=== PATIENT | male | born 1985 | race Caucasian/White ===

== ENCOUNTER 2023-03-22 18:59 | Emergency (ER) | payer OTHER ==
[~2023-03-22] VITALS: Ht 195.6 cm; Wt 90.7 kg
[2023-03-22 19:03] VITALS: BP 148/96
== END 2023-03-22 20:27 | disposition home or self-care (01) ==
LOC: ER 18:59
DX: L02.811 Cutaneous abscess of head [any part, except face] (principal)
CPT/HCPCS: 10060; 99283-25